=== PATIENT | female | born 2005 | race Caucasian/White ===

== ENCOUNTER 2023-09-05 17:55 | Outpatient (CLI) | payer OTHER ==
[~2023-09-05] VITALS: Ht 162.6 cm; Wt 59.0 kg
[2023-09-05] MEDS ORDERED: PRENATAL TABLE1 EAC1 PO (18:00)
[2023-09-05] MEDS ORDERED: PENICILLIN V P500 MG PO (18:01)
[2023-09-05 18:52] LABS: PH,URINE 7.5 (5.0-8.0); URINE APPEARANCE Clear; URINE BILIRRUBIN Negative (NEGATIVE); URINE BLOOD Negative; URINE COLOR Yellow; URINE GLUCOSE Negative (NEGATIVE); URINE LEUKOCYTE Small; URINE NITRATE Negative; URINE PROTEIN Negative (NEGATIVE)
[2023-09-05 18:56] LABS: URINE BACTERIA 521.5 uL (0.0-1933); URINE EPITHELIAL CELLS 105.8 uL (0.0-38.8); URINE RBC 3.1 uL (0.0-20.8); URINE WBC 173.7 uL (0.0-23.2)
[2023-09-05 19:17] LABS: URINE MUCUS SCANT
[2023-09-05 23:30] LABS: HEMATOCRIT 32.8 % (36.0-45.00); MEAN CELL VOLUME 81.1 fL (80.00-100.00); MEAN CORPUSCULAR HEMOGLOBIN 27.2 pg (27.00-32.0); MEAN CORPUSCULAR HGB CONC 33.5 g/dl (32.0-36.0); PLATELET COUNT 353 K/uL (150-450); RED BLOOD COUNT 4.04 M/uL (4.00-6.00); RED CELL DISTRIBUTION WIDTH 15.7 % (11.5-14.5)
== END 2023-09-06 11:40 | disposition home or self-care (01) ==
LOC: OBS/DEL 17:55
PROVIDERS: Obstetrics & Gynecology; ATTEND Specialist
DX: O98.813 Other maternal infectious and parasitic diseases complicating pregnancy, third trimester (principal); Z3A.39 39 weeks gestation of pregnancy

== ENCOUNTER 2023-09-10 06:44 | Inpatient (IN) | payer OTHER ==
[~2023-09-10] VITALS: Ht 162.6 cm; Wt 62.6 kg
[~2023-09-10 06:44] MED LIST: PENICILLIN V P500 MG PO; PRENATAL TABLE1 EAC1 PO
[2023-09-10 08:29] LABS: HEMATOCRIT 31.9 % (36.0-45.00); HEMOGLOBIN 10.4 g/dL (12.0-15.00); MEAN CELL VOLUME 80.1 fL (80.00-100.00); MEAN CORPUSCULAR HEMOGLOBIN 26.1 pg (27.00-32.0); MEAN CORPUSCULAR HGB CONC 32.5 g/dl (32.0-36.0); PLATELET COUNT 330 K/uL (150-450); RED BLOOD COUNT 3.98 M/uL (4.00-6.00); RED CELL DISTRIBUTION WIDTH 15.7 % (11.5-14.5)
[2023-09-10 08:31] LABS: PH,URINE 7.5 (5.0-8.0); URINE APPEARANCE Clear; URINE BILIRRUBIN Negative (NEGATIVE); URINE COLOR Yellow; URINE GLUCOSE Negative (NEGATIVE); URINE LEUKOCYTE Trace; URINE NITRATE Negative; URINE PROTEIN Negative (NEGATIVE)
[2023-09-10 08:35] LABS: URINE BACTERIA 293.5 uL (0.0-1933); URINE EPITHELIAL CELLS 59.1 uL (0.0-38.8); URINE RBC 2.4 uL (0.0-20.8); URINE WBC 49.7 uL (0.0-23.2)
[2023-09-10 08:45] LABS: URINE BLOOD TRACES
[2023-09-10 09:06] LABS: INR 0.94; PARTIAL THROMBOPLASTIN TIME 24.8 SECONDS (22.0-34.0); PROTHROMBIN TIME 9.9 SECONDS (9.0-11.5)
[2023-09-10 09:12] LABS: ALBUMIN 2.8 gm/dL (3.4-5.0); BILIRUBIN TOTAL 0.42 mg/dL (0.3-1.2); CALCIUM 8.8 mg/dL (8.5-10.1); CREATININE SERUM 0.47 mg/dL (0.55-1.02); GFR 170.71; POTASSIUM 4.33 mEq/L (3.5-5.1); TOTAL PROTEIN 6.8 gm/dL (6.4-8.2)
[2023-09-11 01:57] LABS: HEMATOCRIT 31.4 % (36.0-45.00); HEMOGLOBIN 10.3 g/dL (12.0-15.00); MEAN CELL VOLUME 79.3 fL (80.00-100.00); MEAN CORPUSCULAR HEMOGLOBIN 26.1 pg (27.00-32.0); MEAN CORPUSCULAR HGB CONC 32.9 g/dl (32.0-36.0); PLATELET COUNT 310 K/uL (150-450); RED BLOOD COUNT 3.96 M/uL (4.00-6.00); RED CELL DISTRIBUTION WIDTH 15.6 % (11.5-14.5)
== END 2023-09-12 17:28 | disposition home or self-care (01) | DRG 807 ==
LOC: OB/GYN 06:44 → LDR 06:44 → OB/GYN 15:26
PROVIDERS: ADMIT Specialist; ATTEND Specialist
PROC: 10E0XZZ Delivery of Products of Conception, External Approach (ICD-10-PCS; principal; 2023-09-10)
PROC: 0HQ9XZZ Repair Perineum Skin, External Approach (ICD-10-PCS; 2023-09-10)
PROC: 4A1HXCZ Monitoring of Products of Conception, Cardiac Rate, External Approach (ICD-10-PCS; 2023-09-10)
DX: O70.0 First degree perineal laceration during delivery (principal); O99.824 Streptococcus B carrier state complicating childbirth; Z37.0 Single live birth; Z3A.40 40 weeks gestation of pregnancy; Z20.822 Contact with and (suspected) exposure to COVID-19